=== PATIENT | male | born 1935 | race Caucasian/White ===

== ENCOUNTER 2022-09-28 06:23 | Inpatient (IN) ==
[~2022-09-28 06:23] MED LIST: Buffered Lidocaine 1% SYRIN 1 ml INTRADERM ONE; Lactated Ringers 1000 ml BAG 1,000 ML IV SCH; Naloxone 0.4 mg VIAL 0.4 mg/ml 1 ml VIAL IV PRN; Ondansetron 4 mg VIAL 2 MG/ML 2 ml VIAL IV PRN; fentaNYL 100 mcg/2 ml 50 MCG/ML VIAL IV PRN
[2022-09-28] MEDS ORDERED: Clindamycin 900 MG/D5W BAG 900 MG/50 ML BAG IVPB ONE (06:33)
[2022-09-28] MEDS ORDERED: Tranexamic Acid 1 GM/100ML BAG 2,000 MG/200 ML BAG IV ONE (06:33)
[2022-09-28] MEDS ORDERED: Tranexamic Acid 1,000 MG/10 ML SDV ONE (07:03)
[2022-09-28] MEDS ORDERED: Bupivacaine 0.25% SDV 30 ML ONE (07:04)
[2022-09-28] MEDS ORDERED: fentaNYL 100 mcg/2 ml 50 MCG/ML VIAL ONE (07:07)
[2022-09-28] MEDS ORDERED: Midazolam 2 mg/2 ml VIAL 1 mg/ml 2 ml VIAL (2 mg) ONE (07:07)
[2022-09-28] MEDS ORDERED: Lidocaine 2% PF 5 ML VIAL ONE (07:08)
[2022-09-28] MEDS ORDERED: Propofol 10 MG/ML 20 ML BTL ONE ×3 (07:08→10:18)
[2022-09-28] MEDS ORDERED: Rocuronium 50 mg VIAL 10 mg/ml 5 ml VIAL (50 mg) ONE (07:08)
[2022-09-28] MEDS ORDERED: BUPIVACAINE **LIPOSOME/PF 13.3 MG/ML (266MG/ 20ML) VIAL (RESTRICTED) INFIL ONE (09:00)
[2022-09-28] MEDS ORDERED: Phenylephrine IV 10 MG/ML 1 ml VIAL ONE (10:40)
[2022-09-28] MEDS ORDERED: Ondansetron ODT 4 mg TAB 4 MG TAB PO PRN (11:29)
[2022-09-28] MEDS ORDERED: Lactulose 30 ml UDC PO PRN (11:29)
[2022-09-28] MEDS ORDERED: Ondansetron 4 mg VIAL 2 MG/ML 2 ml VIAL IV PRN (11:29)
[2022-09-28] MEDS ORDERED: Magnesium Hydroxide LIQ 30 ML UDC PO PRN (11:29)
[2022-09-28] MEDS ORDERED: Lactated Ringers 1000 ml BAG 1,000 ML IV SCH (12:00)
[2022-09-28] MEDS ORDERED: Dextrose 50% Syringe 50 ml 25 GM/50 ML SYRINGE IV PUSH PRN (12:23)
[2022-09-28] MEDS ORDERED: Metoclopramide 5 MG/ML VIAL (10 mg) IV ONE (15:13)
[2022-09-28] MEDS: Clindamycin 600 MG/D5W BAG 600 MG/50 ML BAG IV SCH (17:17)
[2022-09-28] MEDS: Magnesium Hydroxide LIQ 30 ML UDC PO SCH (22:40)
[2022-09-29] MEDS: Clindamycin 600 MG/D5W BAG 600 MG/50 ML BAG IV SCH ×2 (00:27→08:43)
[2022-09-29 06:36] LABS: Hematocrit 40 % (42-52); Hemoglobin 13.3 g/dL (14.0-18.0); Mean Platelet Volume 7.6 fL (7.4-10.4); Platelet Count 263 10^3/uL (150-450)
[2022-09-29 07:12] LABS: Blood Urea Nitrogen 41 mg/dL (6-24); CO2 Carbon Dioxide 19 mmol/L (22-32); Calcium 9.1 mg/dL (8.6-10.3); Chloride 103 mmol/L (101-111); Glucose 264 mg/dL (70-100); Sodium 133 mmol/L (135-145); eGFR CKD-EPI 33.9 (>60)
[2022-09-29 07:20] LABS: Anion Gap 11 mmol/L (2-11)
[2022-09-29] MEDS: Magnesium Hydroxide LIQ 30 ML UDC PO SCH ×3 (08:36→22:44)
[2022-09-29] MEDS: Aspirin EC 81 mg TAB.EC (enteric coated) PO SCH (08:37)
[2022-09-29] MEDS: Vitamin THERAPEUTIC TAB PO SCH (08:37)
[2022-09-29] MEDS: Psyllium PAK PO SCH (08:39)
[2022-09-29] MEDS: Morphine ER 15 mg TAB ** extended release PO SCH ×3 (10:15→22:44)
[2022-09-29] MEDS: Morphine 2 MG/ML SYRINGE IV PRN (10:33)
[2022-09-29] MEDS ORDERED: SODIUM ZIRCONIUM CYCLOSILICATE 10 GM PACKET PO ONE (15:31)
[2022-09-29] MEDS ORDERED: Iodixanol (CONTRAST) 320 MG/ML 100 ML SDV IV ONE (22:16)
[2022-09-29] MEDS ORDERED: hydrALAZINE 20 mg/ml 1 ML Vial IV IV SLOW PU ONE (23:28)
[2022-09-30 00:27] LABS: Hematocrit 41 % (42-52); Hemoglobin 13.2 g/dL (14.0-18.0); Mean Corpuscular HGB Conc 33 g/dL (31-36); Mean Corpuscular Hemoglobin 31 pg (27-31); Mean Corpuscular Volume 96 fL (80-94); Mean Platelet Volume 7.9 fL (7.4-10.4); Platelet Count 226 10^3/uL (150-450); Red Blood Count 4.24 10^6 /uL (4.18-5.48); Red Cell Distribution Width 14 % (10-15); White Blood Count 13.9 10^3/uL (3.5-10.8)
[2022-09-30 00:34] LABS: Activated Partial Thrombo Time 34.1 seconds (26.0-38.0); INR 1.35 (0.88-1.18)
[2022-09-30 00:45] LABS: ABS Eosinophils 0.1 10^3/ul (0-0.6); ABS Lymphocytes 1.3 10^3/ul (1.0-4.8); ABS Monocytes 1.8 10^3/ul (0-0.8); ABS Neutrophils 10.6 10^3/ul (1.5-7.7); Eosinophil % 0.5 %; Lymphocyte % 9.3 %
[2022-09-30 01:05] LABS: Albumin 3.5 g/dL (3.2-5.2); Albumin/Globulin Ratio 1.1 (1-3); Globulin 3.3 g/dL (2-4); HDL Cholesterol 51.3 mg/dL; Total Bilirubin 1.4 mg/dL (0.2-1.0); Total Protein 6.8 g/dL (6.4-8.9); eGFR CKD-EPI 31.5 (>60)
[2022-09-30 01:09] LABS: Potassium 6.3 mmol/L (3.5-5.0)
[2022-09-30] MEDS ORDERED: SODIUM ZIRCONIUM CYCLOSILICATE 10 GM PACKET PO ONE ×2 (01:15→08:20)
[2022-09-30] MEDS: Morphine 2 MG/ML SYRINGE IV PRN (01:48)
[2022-09-30 06:18] LABS: Hematocrit 43 % (42-52); Hemoglobin 13.8 g/dL (14.0-18.0); Mean Platelet Volume 7.9 fL (7.4-10.4); Platelet Count 264 10^3/uL (150-450)
[2022-09-30 06:48] LABS: Calcium 9.3 mg/dL (8.6-10.3); eGFR CKD-EPI 30.5 (>60)
[2022-09-30 07:19] LABS: Potassium 5.5 mmol/L (3.5-5.0)
[2022-09-30] MEDS: Magnesium Hydroxide LIQ 30 ML UDC PO SCH ×2 (08:14→22:08)
[2022-09-30] MEDS: Aspirin EC 81 mg TAB.EC (enteric coated) PO SCH (08:14)
[2022-09-30] MEDS: Vitamin THERAPEUTIC TAB PO SCH (08:15)
[2022-09-30] MEDS: Psyllium PAK PO SCH (08:16)
[2022-09-30 09:25] LABS: TSH Ultra Thyroid Stim Horm 1.65 mcIU/mL (0.34-5.60)
[2022-09-30] MEDS: Morphine ER 15 mg TAB ** extended release PO SCH ×2 (12:06→22:10)
[2022-09-30] MEDS ORDERED: Sulfur Hexaflouride MICROSPHR 25 MG VIAL ONE (14:08)
[2022-10-01 06:20] LABS: ABS Basophils 0.1 10^3/ul (0-0.2); ABS Eosinophils 0.7 10^3/ul (0-0.6); ABS Lymphocytes 2.3 10^3/ul (1.0-4.8); ABS Monocytes 1.5 10^3/ul (0-0.8); ABS Neutrophils 9.5 10^3/ul (1.5-7.7); Eosinophil % 4.6 %; Hematocrit 37 % (42-52); Hemoglobin 11.7 g/dL (14.0-18.0); Lymphocyte % 16.6 %; Mean Corpuscular HGB Conc 32 g/dL (31-36); Mean Corpuscular Hemoglobin 31 pg (27-31); Mean Corpuscular Volume 97 fL (80-94); Platelet Count 212 10^3/uL (150-450); Red Blood Count 3.76 10^6 /uL (4.18-5.48); Red Cell Distribution Width 14 % (10-15); White Blood Count 14.1 10^3/uL (3.5-10.8)
[2022-10-01 06:44] LABS: Calcium 8.6 mg/dL (8.6-10.3); Magnesium 1.9 mg/dL (1.9-2.7); Potassium 5.1 mmol/L (3.5-5.0); eGFR CKD-EPI 22.3 (>60)
[2022-10-01] MEDS: Vitamin THERAPEUTIC TAB PO SCH (08:15)
[2022-10-01] MEDS: Magnesium Hydroxide LIQ 30 ML UDC PO SCH (08:15)
[2022-10-01] MEDS: Psyllium PAK PO SCH (08:16)
[2022-10-01] MEDS ORDERED: cefTRIAXone 2 gm/50 mL D5W 2 GM/50 ML BAG IV ONE (08:32)
[2022-10-01] MEDS ORDERED: Azithromycin 500 mg/250 ml NS 500 MG/250 ML BAG IVPB ONE (08:33)
[2022-10-01] MEDS: Morphine ER 15 mg TAB ** extended release PO SCH (09:36)
[2022-10-01] MEDS: Aspirin EC 81 mg TAB.EC (enteric coated) PO SCH (10:33)
[2022-10-01 10:39] LABS: Rapid COVID-19 Molecular Undetected (Undetected)
[2022-10-01 10:43] VITALS: BP 136/54
[2022-10-01 14:53] LABS: Osmolality Serum 291 mOsm/kg (275-295)
== END 2022-10-01 11:00 | DRG 469 ==
LOC: OR 06:23 → SSU 06:23 → MEDTELE 09-29 23:45
PROVIDERS: ADMIT Orthopaedic Surgery Sports Medicine; ATTEND Hospitalist